=== PATIENT | female | born 1955 | race Caucasian/White ===

== ENCOUNTER 2016-08-24 13:55 | Inpatient (IN) | payer BC ==
--- NOTE | ~2016-08-24 | CN ---
Consultation Report [facility] [address] [place]. [address] NAME: BETTY JACINTO : 51 STATUS : ADM IN PAT#: [id number] AGE: 61 ADM/REG DATE : 08/24/16 MR#: [id number] REPORT SERV DATE: 08/25/16 DICTATED BY: DHAVAL JUAREZ DATE: 08/25/16 REPORT STATUS : Draft TRANSCRIBED BY: LISA DATE: 08/25/16 NEUROLOGICAL CONSULTATION DATE OF CONSULTATION: 08/25/2016 LOCATION OF THE PATIENT: Room 107. AGE: 61. HISTORY OF PRESENT ILLNESS: Ms. Jacinto is a 61-year-old female with known history of hypertension, who was admitted through the emergency room with complaints of slurred speech and mild difficulty with using her right arm. The patient's symptoms started the night prior to admission. The symptoms were observed by her children. The patient herself was not aware of her deficits. The patient has history of a previous stroke, which occurred approximately 10 years ago. The patient's CT scan of the head on admission showed microvascular changes with possible old thalamic stroke. Since the admission, the patient had an MRI that was positive for an acute left thalamic infarction, no bleed, and also showed an old pontine infarction. MRA of neck and brain showed no evidence of stenosis or other significant abnormalities. The patient described having some difficulty 10 years ago when she had a stroke, however, has no recollection what these difficulties were. The patient's son who was at her bedside described that the patient yesterday displayed some difficulty with her balance and appeared to drag her right leg when she was walking. Her daughter noted that her signature on signing was not as clear. The patient is right handed. As per patient, she sees her primary physician regularly, has not been taking aspirin or statin. SOCIAL HISTORY: The patient stopped smoking two years ago, admitted to drinking occasionally "every other day," two mixed drinks or beer. Social history otherwise is unremarkable. The patient has two children. Her son is currently in college. Patient does live alone. FAMILY HISTORY: Significant history of cancer in patient's mother who in her 90s. The patient's father of unknown disease at age 79. The patient has a brother who has history of a heart attack. REVIEW OF SYSTEMS: On review of systems, the patient denied history of head trauma, recent infection. Denied difficulty with her vision, chewing, or swallowing. She stated her speech has been slightly slurred, however, is improving. The patient denied difficulty of weight loss. Denied GI or complaints. Denied shortness of breath. Denied chest pain or palpitations or irregular heartbeat. Denied leg swelling. Denied rash. The rest of 14-point of review of system was negative. ALLERGIES: NO KNOWN ALLERGIES. Consultation Report [address] [place]. [address] NAME: BETTY JACINTO : 51 STATUS : ADM IN PAT#: [id number] AGE: 61 ADM/REG DATE : 08/24/16 MR#: [id number] REPORT SERV DATE: 08/25/16 DICTATED BY: DHAVAL JUAREZ DATE: 08/25/16 REPORT STATUS : Draft TRANSCRIBED BY: LISA DATE: 08/25/16 MEDICATIONS: Prior to admission included Maxzide. PHYSICAL EXAMINATION: VITAL SIGNS: Blood pressure 137/81, pulse was 69, respirations 24, temperature was 98.9, oxygen saturation 100%. HEAD AND NECK: Showed her to be normocephalic. There was no evidence of trauma. Auscultation of the neck showed no evidence of bruits. No JVD. No thyromegaly observed. On palpation, no lymphadenopathy. CHEST: Symmetrical. LUNGS: Clear. HEART: Auscultation of her heart reveals regular S1, S2. No S3, S4, gallops were noted. ABDOMEN: Soft, nontender. No organomegaly. EXTREMITIES: Show no clubbing, cyanosis. There was no peripheral edema. Peripheral pulses were palpable and normal. SKIN: Clear. NEUROLOGICAL EXAMINATION: MENTAL STATUS EXAM: The patient answered all the questions appropriately, however, appeared to have slightly strange affect. She demanded to go home. She had to think about answering questions about the date with help of her son. She stated it was 08/23. Corrected herself quickly with no other difficulty with memory. Patient's speech was mildly dysarthric. There was no aphasia. Distant memory appeared intact. The patient repeated that she wanted to go home. The patient appears to have the attitude of indifference towards her deficit. CRANIAL NERVE EXAMINATION II-XII: Visual quiroga on confrontation were intact. Funduscopic exam showed no evidence of papilledema, hemorrhages, or exudates. Pupils were 3 mm, appeared equal and reactive to light and accommodation. Extraocular movements were normal. Consensual light reflex was normal. Facial sensation, muscles of mastication appeared symmetrical. Muscles of facial expression show no evidence of asymmetry. Tongue was midline. No atrophy or fibrillations were noted. Palate appeared to elevate symmetrically, however, was slightly sluggish. There was no asymmetry, no deviation of the tongue, and tongue atrophy. Sternocleidomastoid and trapezius muscles were symmetrical and normal. Shoulder shrug was normal. Hearing was intact bilaterally. MOTOR EXAM: Muscle bulk and tone was normal except for the right arm, which appeared to have slightly decreased tone. The patient appeared to have mild ataxia on aywgji-ns-lnhk on the right, otherwise. Deep tender reflexes were symmetrical throughout. Babinski signs were not elicitable. SENSORY EXAM: Showed decreased sensation distally in both lower extremities to temperature and vibration. The deficit was mild. Position sense was intact. Two-point discrimination was intact. CEREBELLAR EXAM: Zhfpkq-ii-qciz was mildly ataxic on the right with past-pointing, which was mild, however, initial movement appeared to be slightly clumsy. Frlr-dn-tvhz was normal bilaterally and rapid alternating movements appeared to be slightly clumsy on the right. Gait was minimally wide-based. Patient had slight difficulty on turning, otherwise it was intact. Consultation Report [address] [place]. [address] NAME: BETTY JACINTO : 51 STATUS : ADM IN [facility]#: [id number] AGE: 61 ADM/REG DATE : 08/24/16 MR#: [id number] REPORT SERV DATE: 08/25/16 DICTATED BY: DHAVAL JUAREZ DATE: 08/25/16 REPORT STATUS : Draft TRANSCRIBED BY: MODL DATE: 08/25/16 LABORATORY STUDIES: Sodium 139, potassium 3.9, BUN 8, creatinine 0.89, glucose 91, calcium 9, magnesium 1.9. WBC count 4.6, hemoglobin 14.6, hematocrit 43.8, platelet count 221,000. PT/INR 1.1. CT scan of the head on admission showed microvascular changes, old left basal ganglia and thalamus lacunar infarcts as mentioned above. MRI of the brain showed an acute left thalamic stroke, size of 0.5 x 1.4 cm. The deficit was also noted on FLAIR images, which suggest presence of a stroke most likely in the 8-12 hour window. No evidence of hemorrhage or midline shift. MRA of the neck and brain showed no evidence of stenosis or other abnormality. IMPRESSION AND RECOMMENDATIONS: Acute left thalamic stroke most likely of ischemic origin. The patient does have history of hypertension, not clear whether the patient has been consistent or compliant with her treatment or followup visits to her primary physician. History of previous stroke approximately 10 years ago, which appears to be of ischemic origin. The patient's imaging studies showed no pontine stroke on the left. The patient's deficit appears to be mild, however, the patient does display some signs of , however, ignoring her deficit. Thus far, no evidence of dysphagia was reported and the patient has no difficulty swallowing. Would recommend to follow stroke orders, which also include speech therapy evaluation. Risk factors for stroke and stroke prevention were discussed with the patient and her son in detail. The patient is insisting on going home, however, this was explained to her that it would be important for her to have continuous monitoring to rule out cardiac arrhythmias and to proceed with a workup of stroke. The patient may be a good candidate for rehabilitation. She does display some difficulty with right hand use and she is right handed. Occupational therapy is recommended. Hypertension appears to be under good control now, I would recommend to avoid precipitous drops of blood pressure at this time and allow permissive hypertension. I recommend to proceed starting the patient on aspirin. Continue telemetry monitoring. The patient may be a candidate for a loop recorder and Cardiology followup if recommended by primary physician and hospitalist team. As mentioned above, recommend to follow stroke orders which include DVT prophylaxis, STD, speech therapy, and stroke education. The patient was advised to lower her alcohol consumption. She does have history of vitamin D deficiency, which should be corrected with appropriate treatment. Would recommend to obtain vitamin B12 and folate level in view of history of alcohol use, serum lipid panel, recommend to start statins and maximize them if needed, echocardiogram. No additional brain imaging is recommended at this time. Additional recommendations will follow according to the patient's progress. Thank you for allowing us to participate in this patient's care. JASON/LISA Dhaval Juarez MD Consultation Report [address] [place]. [address] NAME: BETTY JACINTO : 51 STATUS : ADM IN PAT#: [id number] AGE: 61 ADM/REG DATE : 08/24/16 MR#: [id number] REPORT SERV DATE: 08/25/16 DICTATED BY: DHAVAL JUAREZ DATE: 08/25/16 REPORT STATUS : Draft TRANSCRIBED BY: MODL DATE: 08/25/16 / [id number] CC: Letitia Taylor M.D.
--- NOTE | ~2016-08-24 | DS ---
Discharge Summary [facility] [address] [place]. [address] NAME: BETTY JACINTO : 51 STATUS : DIS IN PAT#: [id number] AGE: 61 ADM/REG DATE : 08/24/16 MR#: [id number] REPORT SERV DATE: 08/26/16 DICTATED BY: JAKOB ARREDONDO DATE: 08/26/16 REPORT STATUS : Draft TRANSCRIBED BY: MODL DATE: 08/26/16 ADMISSION DATE: 08/24/2016 DISCHARGE DATE: 08/26/2016 FINAL DIAGNOSES: 1. Acute left thalamic cerebrovascular accident. 2. Hypertension. 3. Depression and anxiety. DIAGNOSTIC EXAM: Echocardiogram showing left ventricular systolic function intact at 55%. Right ventricular systolic function intact. Mild mitral and tricuspid regurgitation. No cardiac source of embolus found. CAT scan of the brain without contrast, no acute intracranial abnormality. Chronic microvascular white matter ischemic changes. Minimal old lacunar infarcts. Chest x-ray, minimal left basilar atelectasis. Otherwise, no acute cardiopulmonary abnormality identified. MRI of the brain showing acute left thalamic region infarction. No bleed. Old pontine infarction. Intracranial MRA within normal limits. MRA of the head as above. MRA of the neck. No evidence of stenosis of carotid, vertebral, or subclavian arteries noted in the brachiocephalic portion of the exam. HOSPITAL COURSE: Please refer to the H and P done by Dr. Kavon Sommer dated on 08/24/2016. Briefly, this is a 61-year-old female, who comes in for slurred speech. The patient has a history of hypertension, depression, and anxiety and is compliant with her medications. The patient started having slurred speech at around 7 p.m. day prior to admission and then persisted until the next day. She was then brought to the emergency room and was admitted by Dr. Sommer. We got the above test and it showed the patient has a left thalamic CVA. Further workup revealed that the patient is also low on her vitamin D and vitamin B and she is supplemented. We got OT involved and they recommended outpatient occupational therapy. The patient is eager to go home. So, once we get physical therapy and Neurology to clear the patient, we will be discharging the patient with the above diagnoses. The patient will be on the following medications. Aspirin 325 mg a day, Lipitor 40 mg at bedtime, vitamin D 1000 units a day, multivitamin once a day, Effexor 150 mg a day, trazodone p.r.n. at night, triamterene and hydrochlorothiazide 37.5/25 one tab p.o. daily, Zyrtec 10 mg a day, vitamin B12 of 1000 mcg p.o. daily. The patient will be following up with her PCP, Dr. Tawanna Bee. This has been explained to the patient and she agreed and understood the plan. Discharge Summary [address] [address] NAME: BETTY JACINTO : 51 STATUS : DIS IN PAT#: [id number] AGE: 61 ADM/REG DATE : 08/24/16 MR#: [id number] REPORT SERV DATE: 08/26/16 DICTATED BY: JAKOB ARREDONDO DATE: 08/26/16 REPORT STATUS : Draft TRANSCRIBED BY: LISA DATE: 08/26/16 DICTATED BY: Letitia Arceo/LISA Jakob Arredondo M.D. / [id number] CC: Letitia Arceo M.D.
--- NOTE | ~2016-08-24 | HP ---
History And Physical [facility] [id number] [place]. [address] NAME: BETTY JACINTO : 51 STATUS : ADM IN [facility]#: [id number] AGE: 61 ADM/REG DATE : 08/24/16 MR#: [id number] REPORT SERV DATE: 08/24/16 DICTATED BY: KAVON SOMMER DATE: 08/24/16 REPORT STATUS : Draft TRANSCRIBED BY: MODStephania DATE: 08/24/16 DATE OF ADMISSION: 08/24/2016 CHIEF COMPLAINT: Slurred speech. HISTORY OF PRESENT ILLNESS: Obtained from the patient as well as the patient's family present at bedside, daughter present at bedside as well as emergency room documents. Also, prior medical records limited available to us were thoroughly reviewed. According to the information available, the patient is a pleasant 61-year-old white woman with prior history of prior CVA, TIAs in the past, presented to the emergency room by a private vehicle because of slurred speech and neurologic symptoms. Apparently the patient was in her usual state of health yesterday afternoon, she went to her daughter, running different errands and then went home and around 7 p.m., she was at her baseline. No reported symptoms (in retrospect, the patient stated that in the evening, she had noticed that she has some numbness on the tip of her tongue but she has not paid attention or thought anything about it). This morning around 1000 a.m., the patient's daughter was called by a friend who talked with her mother on the phone and reportedly related the fact that her mother sounded slurred and a little slow with her speech, therefore her daughter talked with her. She had acknowledged the difficulty in speaking slurred, different from previous night and she went and checked on her. The patient was actually in [employer] where she was shopping and was running other errands for her daughter, so she was able to drive herself there and continue to attend to her needs as planned, but on arrival in the emergency room, reportedly the symptoms improved, gradually being able to talk better. Her daughter noticed that at the time of signing in, her mother could not produce a nice and clean signature which she usually does and her signature was very scribbled, like not herself. The patient denies any headache. Denies any phono or photophobia. Denies any neurologic symptoms. Denies any new change in her medications or taking any eolv-zju-ueqxqhz medications. Denies using any alcohol or drugs which she does not use usually anyway. Denies other motor deficits with no other neurologic deficits reported. There is no report of chest pain or palpitations. No report of syncope-like episode and no report of shortness of breath or coughing. Initial investigation in the emergency room with CT scan of the brain showed no acute intracranial pathology. Therefore because of the above presentation and because of the "awakening stroke" with last documented "well seen" at 7 p.m. yesterday. The patient was referred to the Hospitalist Service for further management and evaluation. Presently, the patient denies any significant distress. She is actually asking to be discharged home, but she still has obvious difficulty finding her words and some slurred speech. PAST MEDICAL HISTORY: Significant for cerebrovascular disease with apparently previously a CVA in 2005. Reportedly microvascular ischemic disease. The patient has not taken any aspirin or any other antiplatelet therapy in years. History of possible hypertension as the patient takes p.r.n. Maxzide. History of vitamin D deficiency, taking 55046 units of vitamin D weekly. History of depression and anxiety. History of seasonal allergies. PAST SURGICAL HISTORY: Significant only for wisdom teeth removal long time ago. SOCIAL HISTORY: She is . Lives alone. Involved family. Denies tobacco abuse. She History And Physical [address] [place]. [address] NAME: BETTY JACINTO : 51 STATUS : ADM IN [facility]#: [id number] AGE: 61 ADM/REG DATE : 08/24/16 MR#: [id number] REPORT SERV DATE: 08/24/16 DICTATED BY: KAVON SOMMER DATE: 08/24/16 REPORT STATUS : Draft TRANSCRIBED BY: MODL DATE: 08/24/16 used to smoke in the past, quit 2 years ago. Amassed probably 30-35 years of a pack-year smoking. Denies alcohol abuse; only on rare social occasions several times a year. Denies illicit recreational drug abuse. FAMILY HISTORY: Significant for coronary artery disease. Her brother had an ID at an early age in his 50s. REVIEW OF SYSTEMS: Per H and P, otherwise negative in all review of systems. Please note, the comprehensive review of system was obtained and pertinent positives were including in the H and P. HOME MEDICATION LIST: According to the list provided, the patient is supposed to take 1. Zyrtec 10 mg p.o. daily p.r.n. allergies. 2. Trazodone 100 to 200 mg p.o. at bedtime p.r.n. sleep. 3. Maxzide 37.5/25 one tablet p.o. daily p.r.n. edema. 4. Effexor XR 150 mg p.o. daily as well as vitamin D as in then 89647 units p.o. weekly. PHYSICAL EXAMINATION: GENERAL: Pleasant cooperant, in no acute distress at this moment. VITAL SIGNS: Upon arrival in the emergency room, blood pressure 139/81, pulse 77, respiratory rate 18, temperature 98.1, and oxygen saturation 95% in room air. HEENT: Pupils equal, round, and reactive to light. Extraocular movements intact. Throat, mild erythema. No exudate. NECK: Supple. No JVD. No bruit. No thyromegaly. No lymph nodes. LUNGS: Bilateral air entry with few dry crackles at bases. No wheezing. No rales. HEART: Positive S1, S2. Regular rate and rhythm. Positive soft mitral regurgitation murmur at the apex. No rub. No gallop. PMI not displaced by palpation. ABDOMEN: Positive bowel sounds. Soft, nontender, no guarding, no hepatosplenomegaly. EXTREMITIES: With decreased range of motion and osteoarthritic changes. No clubbing, no cyanosis, no edema. No calf tenderness. +2 pulses bilaterally. NEUROLOGIC: Alert and oriented x3. Still noticed slurred speech and expressive dysarthria. Tongue midline and no other cranial nerve deficiency noticed or abnormalities. No numbness or tingling of her face or tongue movement. Motor strength 5/5 symmetrical bilateral. Deep tendon reflexes 2/2 symmetrical bilateral. Babinski negative bilateral. Coordination intact except mild ataxia noticed when the patient walking. Romberg negative. BACK with decreased range of motion, but no focal localized tenderness. No CVA tenderness. SKIN: No bruises, no rashes, no lacerations. SIGNIFICANT LABORATORY DATA: CT scan of the head/brain by preliminary report showed no acute intraabdominal abnormalities, chronic microvascular white matter ischemic changes and minimal old lacunar infarcts noticed. Urine drug screen was negative. Chest x-ray (personal reading) showed no acute infiltrate. Sodium 139, potassium 3.9, chloride 108, bicarb 28, BUN 8, creatinine 0.89, glucose 91, and calcium 9. Liver function tests within normal limits. Troponin I 0.03 which is negative. Urine drug screen negative. White cell count 4.6, hemoglobin 14.6, and platelet count 221. INR 1.1. EKG not available at this moment. No arrhythmia noticed on the telemetry strip. History And Physical [address] [address] NAME: BETTY JACINTO : 51 STATUS : ADM IN [facility]#: [id number] AGE: 61 ADM/REG DATE : 08/24/16 MR#: [id number] REPORT SERV DATE: 08/24/16 DICTATED BY: KAVON SOMMER DATE: 08/24/16 REPORT STATUS : Draft TRANSCRIBED BY: LISA DATE: 08/24/16 ASSESSMENT AND PLAN AND PROBLEM LIST: The patient is a pleasant 61-year-old white woman with known history of prior lacunar CVAs and no antiplatelet therapy, presented with symptoms suggestive of acute subacute "awakening" stroke. IMPRESSION: 1. Neurologic. a. CVA. Acute as well as subacute. b. Dysarthria. c. Encephalopathy acute, reportedly resolving. d. Cerebrovascular disease with prior cerebrovascular accidents and TIAs in the past. For all the above, the patient has been admitted on the Hospitalist Service with neurologic checks. Continue aspirin. Continue statin. Monitor vital signs including blood pressure. Further imaging including vascular studies for the neck arteries with MRI MRA of the brain and MRA of the neck arteries to be obtained. Neurology consultation. 2. Possible hypertension versus "pedal edema." Hold Maxzide for now. Monitor vital signs. 3. Emphysema. Former smoker. Use only p.r.n. bronchodilator therapy. 4. Vitamin D deficiency, continue her vitamin D supplementation. 5. Depression and anxiety. Provide emotional support. Continue Effexor XR and p.r.n. trazodone. 6. Allergies. Seasonal allergies. PROGNOSIS: Moderately good for this admission. Discussed with the patient and the patient's family present at bedside. Questions were answered in full. Please note, the patient is a full code at this moment as discussed with the patient and family at bedside. Please note, also the written H and P, and written orders and instructions. GAVIN/LISA Kavon Sommer M.D. / [id number] CC: Tawanna Bee M.D.
[2016-08-24 13:29] LABS: BASOPHILS 0.2 %; BASOPHILS ABSOLUTE 0.01 10/3/uL (0.0-0.16); EOSINOPHILS 2.4 %; EOSINOPHILS ABSOLUTE 0.11 10/3/uL (0.0-0.53); HEMATOCRIT 43.8 % (36.0-48.0); HEMOGLOBIN 14.6 g/dL (12.0-16.0); IMMATURE GRANULOCYTES 0.2 %; IMMATURE GRANULOCYTES ABSOLUTE 0.01 10/3/uL (0.0-0.11); LYMPHOCYTES 32.7 %; LYMPHOCYTES ABSOLUTE 1.51 10/3/uL (0.67-4.30); MEAN CORPUS HGB CONC 33.3 g/dL (32.0-36.0); MEAN CORPUSCULAR HEMOGLOB 33.1 pg (26.0-34.0); MEAN CORPUSCULAR VOLUME 99.3 fL (80-100); MEAN PLATELET VOLUME 9.9 fL (9.2-13.0); MONOCYTES 8.4 %; MONOCYTES ABSOLUTE 0.39 10/3/uL (0.21-1.20); NEUTROPHILS 56.1 %; NEUTROPHILS ABSOLUTE 2.59 10/3/uL (2.02-8.40); PLATELET COUNT 221 10/3/uL (150-400); RBC DISTRIBUTION WIDTH 13.5 % (12.0-16.0); RED CELL COUNT 4.41 10/6/uL (4.0-5.6); WHITE BLOOD CELLS 4.6 10/3/uL (4.5-10.5)
[2016-08-24 13:30] LABS: ER CBC TAT 0 Hrs 05 Mins; MANUAL DIFF NO %
[2016-08-24 13:34] LABS: INTERNATIONAL NORMAL RATI 1.1 UNITS (-); PARTIAL THROMBO TIME 30.3 SEC (22.5-37.2); PROTIME (NOT ORD) 13.6 SEC (12.0-14.5)
[2016-08-24 13:44] LABS: ALBUMIN 3.7 G/DL (3.5-5.0); ALKALINE PHOSPHATASE 80 U/L (45-117); BUN (BLOOD UREA NITROGEN) 8 MG/DL (6-23); CHLORIDE, SERUM 108 MMOL/L (96-112); CO2 (CARBON DIOXIDE) 28 MMOL/L (24-34); CREATININE 0.89 MG/DL (0.55-1.02); GFR AFRICAN AMERICAN 80 ML/MIN (>=60); GFR NON AFRICAN AMERICAN 69 ML/MIN (>=60); GLUCOSE, SERUM 91 MG/DL (60-99); POTASSIUM, SERUM 3.9 MMOL/L (3.5-5.3); SALICYLATE 3.5 MG/DL (-); SGOT(AST) 19 U/L (5-40); SGPT(ALT) 24 U/L (5-65); SODIUM, SERUM 139 MMOL/L (135-148); TOTAL PROTEIN 6.8 G/DL (6.0-8.5); TROPONIN I 0.03 NG/ML (<0.05)
[2016-08-24 13:45] LABS: A/G RATIO 1.2 (0.7-1.9); ACETAMINOPHEN LEVEL (TYLENOL) < 2.0 MCG/ML (10.0-20.0); ALCOHOL < 10 MG/DL (0); GLOBULIN 3.1 G/DL (2.5-4.1); TOTAL BILIRUBIN 1.2 MG/DL (0-1.2)
[2016-08-24 13:47] LABS: AMPHETAMINES (NOT ORD) NEG (NEG); BARBITURATES (NOT ORDERED NEG (NEG); BENZODIAZEPINES (NOT ORD) NEG (NEG); CANNABINOIDS (THC) NEG (NEG); COCAINE (NOT ORDERED) NEG (NEG); OPIATES NEG (NEG); PHENCYCLIDINE(PCP) NEG (NEG); TRICYCLICS NEG (NEG)
[2016-08-24] MEDS ORDERED: TRAZ100 PO (15:52)
[2016-08-24] MEDS ORDERED: MAX25 PO (15:53)
[2016-08-24] MEDS ORDERED: EFFEXOR XR150 MG PO (15:53)
[2016-08-24] MEDS ORDERED: ZYRTEC ALLGY10 MG PO (15:54)
[2016-08-24 20:52] LABS: CPK 62 U/L (0-200); FREE T4 1.01 NG/DL (0.76-1.46); PHOSPHORUS, SERUM 2.9 MG/DL (2.5-4.5); ULTRASENSITIVE TSH 0.996 MCIU/ML (0.358-3.740)
[2016-08-24 20:54] LABS: C-REACTIVE PROTEIN < 2.9 MG/L (<8.0); CK-MB 1.2 NG/ML; FOLATE 6.5 NG/ML (>5.2)
[2016-08-25 07:06] LABS: BASOPHILS 0.4 %; BASOPHILS ABSOLUTE 0.02 10/3/uL (0.0-0.16); EOSINOPHILS 2.9 %; EOSINOPHILS ABSOLUTE 0.13 10/3/uL (0.0-0.53); HEMOGLOBIN 12.9 g/dL (12.0-16.0); LYMPHOCYTES 45.9 %; LYMPHOCYTES ABSOLUTE 2.06 10/3/uL (0.67-4.30); MEAN CORPUS HGB CONC 33.6 g/dL (32.0-36.0); MEAN CORPUSCULAR HEMOGLOB 33.2 pg (26.0-34.0); MEAN CORPUSCULAR VOLUME 98.7 fL (80-100); MEAN PLATELET VOLUME 9.3 fL (9.2-13.0); MONOCYTES 8.7 %; MONOCYTES ABSOLUTE 0.39 10/3/uL (0.21-1.20); NEUTROPHILS 42.1 %; NEUTROPHILS ABSOLUTE 1.89 10/3/uL (2.02-8.40); PLATELET COUNT 186 10/3/uL (150-400); RBC DISTRIBUTION WIDTH 13.6 % (12.0-16.0); RED CELL COUNT 3.89 10/6/uL (4.0-5.6); WHITE BLOOD CELLS 4.5 10/3/uL (4.5-10.5)
[2016-08-25 07:24] LABS: HEMATOCRIT 38.4 % (36.0-48.0); MANUAL DIFF NO %
[2016-08-25 07:27] LABS: ALBUMIN 3.3 G/DL (3.5-5.0); BUN (BLOOD UREA NITROGEN) 11 MG/DL (6-23); CALCIUM, SERUM 8.4 MG/DL (8.5-10.4); CHLORIDE, SERUM 111 MMOL/L (96-112); CHOLESTEROL 180 MG/DL (< 200); CK-MB 1.2 NG/ML; CO2 (CARBON DIOXIDE) 23 MMOL/L (24-34); CPK 47 U/L (0-200); CREATININE 0.75 MG/DL (0.55-1.02); GFR AFRICAN AMERICAN 98 ML/MIN (>=60); GFR NON AFRICAN AMERICAN 85 ML/MIN (>=60); GLUCOSE, SERUM 98 MG/DL (60-99); HDL CHOLESTEROL 36 MG/DL (> 49); LDL CHOLESTEROL 102 MG/DL (< 130); NON-HDL CHOLESTEROL 144 MG/DL (< 160); PHOSPHORUS, SERUM 3.9 MG/DL (2.5-4.5); POTASSIUM, SERUM 3.9 MMOL/L (3.5-5.3); SODIUM, SERUM 141 MMOL/L (135-148); TRIGLYCERIDE 213 MG/DL (< 150); TROPONIN I 0.04 NG/ML (<0.05)
[2016-08-25 15:33] LABS: FOLATE 5.9 NG/ML (>5.2)
[2016-08-26] MEDS ORDERED: LIPITOR40 PO (15:54)
[2016-08-26] MEDS ORDERED: VITAMIN D1000 UNI1 PO (15:55)
[2016-08-26] MEDS ORDERED: CYANO1000T PO (15:56)
[2016-08-26] MEDS ORDERED: MULTIVITAMI1 PO (15:58)
[2016-08-26] MEDS ORDERED: ASA5GR PO (15:58)
== END 2016-08-26 17:17 | disposition home or self-care (01) | DRG 64 ==
LOC: ER 13:55 → 1SO 18:31
PROVIDERS: Internal Medicine; Nurse Practitioner
DX: I63.9 Cerebral infarction, unspecified (principal); G93.49 Other encephalopathy; I10 Essential (primary) hypertension; R47.1 Dysarthria and anarthria; F41.8 Other specified anxiety disorders; E55.9 Vitamin D deficiency, unspecified; J43.9 Emphysema, unspecified; I08.1 Rheumatic disorders of both mitral and tricuspid valves; Z79.01 Long term (current) use of anticoagulants; Z79.899 Other long term (current) drug therapy; Z87.891 Personal history of nicotine dependence; Z86.73 Personal history of transient ischemic attack (TIA), and cerebral infarction without residual deficits
CPT/HCPCS: 70450; 70544; 70548; 70553; 71020; 80053; 80061; 80069; 80305; 80307; 82550; 82553; 82607; 82746; 83036; 83735; 83880; 84100; 84439; 84443; 84481; 84484; 85025; 85610; 85730; 86140; 93005; 93306; 97166-GO; 99285; A9270-GY; A9577; G8987-CH-GO; G8988-CH-GO; G8989-CH-GO

== ENCOUNTER 2016-09-07 20:38 | Emergency (ER) | payer BC ==
[~2016-09-07 20:38] MED LIST: ASA5GR PO; CYANO1000T PO; EFFEXOR XR150 MG PO; LIPITOR40 PO; MAX25 PO; MULTIVITAMI1 PO; TRAZ100 PO; VITAMIN D1000 UNI1 PO; ZYRTEC ALLGY10 MG PO
[2016-09-07 21:07] LABS: BASOPHILS 0.7 %; BASOPHILS ABSOLUTE 0.04 10/3/uL (0.0-0.16); EOSINOPHILS 2.5 %; EOSINOPHILS ABSOLUTE 0.15 10/3/uL (0.0-0.53); ER CBC TAT 0 Hrs 11 Mins; HEMOGLOBIN 13.8 g/dL (12.0-16.0); LYMPHOCYTES 43.8 %; LYMPHOCYTES ABSOLUTE 2.65 10/3/uL (0.67-4.30); MEAN CORPUS HGB CONC 34.5 g/dL (32.0-36.0); MEAN CORPUSCULAR HEMOGLOB 33.5 pg (26.0-34.0); MEAN CORPUSCULAR VOLUME 97.1 fL (80-100); MEAN PLATELET VOLUME 9.6 fL (9.2-13.0); MONOCYTES 8.4 %; MONOCYTES ABSOLUTE 0.51 10/3/uL (0.21-1.20); NEUTROPHILS 44.6 %; PLATELET COUNT 222 10/3/uL (150-400); RBC DISTRIBUTION WIDTH 13.1 % (12.0-16.0); RED CELL COUNT 4.12 10/6/uL (4.0-5.6); WHITE BLOOD CELLS 6.1 10/3/uL (4.5-10.5)
[2016-09-07 21:08] LABS: MANUAL DIFF NO %
[2016-09-07 21:16] LABS: INTERNATIONAL NORMAL RATI 1.1 UNITS (-); PARTIAL THROMBO TIME 30.6 SEC (22.5-37.2); PROTIME (NOT ORD) 13.6 SEC (12.0-14.5)
[2016-09-07 21:24] LABS: A/G RATIO 1.2 (0.7-1.9); ALBUMIN 3.7 G/DL (3.5-5.0); BUN (BLOOD UREA NITROGEN) 8 MG/DL (6-23); CHLORIDE, SERUM 107 MMOL/L (96-112); CO2 (CARBON DIOXIDE) 26 MMOL/L (24-34); CREATININE 0.83 MG/DL (0.55-1.02); GFR AFRICAN AMERICAN 87 ML/MIN (>=60); GFR NON AFRICAN AMERICAN 75 ML/MIN (>=60); GLOBULIN 3.2 G/DL (2.5-4.1); GLUCOSE, SERUM 93 MG/DL (60-99); POTASSIUM, SERUM 3.7 MMOL/L (3.5-5.3); SGOT(AST) 13 U/L (5-40); SGPT(ALT) 23 U/L (5-65); SODIUM, SERUM 140 MMOL/L (135-148); TOTAL BILIRUBIN 0.8 MG/DL (0-1.2); TOTAL PROTEIN 6.9 G/DL (6.0-8.5); TROPONIN I <0.02 NG/ML (<0.05)
[2016-09-07 21:25] LABS: ALKALINE PHOSPHATASE 92 U/L (45-117)
[2016-09-08 01:48] LABS: C-REACTIVE PROTEIN < 2.9 MG/L (<8.0)
== END 2016-09-08 02:28 | disposition home or self-care (01) ==
LOC: ER 20:38
PROVIDERS: Emergency Medicine
DX: R51 Headache (principal); I10 Essential (primary) hypertension; F32.9 Major depressive disorder, single episode, unspecified; F41.9 Anxiety disorder, unspecified; Z87.891 Personal history of nicotine dependence; Z86.73 Personal history of transient ischemic attack (TIA), and cerebral infarction without residual deficits; Z88.0 Allergy status to penicillin; Z79.82 Long term (current) use of aspirin; Z79.899 Other long term (current) drug therapy
CPT/HCPCS: 70450; 71020; 80053; 84484; 85025; 85610; 85652; 85730; 86140; 93005; 99285; A9270-GY